=== PATIENT | male | born 1955 | race Two or more races ===

== ENCOUNTER 2020-12-03 10:00 | Inpatient (IN) | payer OTHER ==
[~2020-12-03] VITALS: Ht 177.8 cm; Wt 63.5 kg
[2020-12-08] MEDS ORDERED: LEVSIN/SL0.125 MG SL (08:05)
[2020-12-08] MEDS ORDERED: INTESTINEX680 M1 PO (08:05)
== END 2020-12-08 13:38 | disposition home or self-care (01) | DRG 349 ==
LOC: SURG 12-07 05:55 → O/R 12-07 05:55 → SURH 12-07 05:55 → SURG 12-07 10:41 → SURH 12-07 11:56
PROVIDERS: ADMIT Surgery; ATTEND Surgery
PROC: 0DBP7ZZ Excision of Rectum, Via Natural or Artificial Opening (ICD-10-PCS; principal; 2020-12-07 07:00)
DX: D12.8 Benign neoplasm of rectum (principal)